=== PATIENT | male | born 1985 | race Caucasian/White ===

== ENCOUNTER 2016-06-11 11:04 | Emergency (ER) | payer OTHER ==
[~2016-06-11] VITALS: Ht 185.4 cm; Wt 81.8 kg
[2016-06-11 11:10] VITALS: BP 141/79; PULSE 117; O2SAT 96
--- NOTE | 2016-06-11 11:21 | ED.REPORT ---
HPI-Abd Pain M Under 40 Date of Service Jun 11, 2016 ED Provider: Aide Hernandez History of Present Illness: new girlfirend and now with burning with urination and white discharge for 2 days. primary care is no one. Nursing Notes Stated Complaint: ABDOMINAL PAIN Chief Complaint: General Complaint Nursing Notes Reviewed: Yes Allergies: Coded Allergies: Sulfa (Sulfonamide Antibiotics) (Verified Allergy, Unknown, hives, itching , 06/11/16) General Time Seen by MD: 11:15 Chief Complaint Dysuria Hx Obtained From: Patient Severity: Current: No pain currently Past Medical History Past Medical History Denies: Asthma Past Surgical History neck surgery 03/21/2015 Smoking History Current Every Day Smoker (1/2 pack a day for 16 years) Social History clean for 3 years 05/2016 Alcohol Use: Denies alcohol use Drug Use: In recovery Occupation live by self no work or school 06/11/2016 Ambulatory Status Independent Review of Systems Basic Review of Systems Eyes: Vision NL, No discharge ENT: Hearing NL, No pain, No nasal congestion, No pharyngeal pain Hematologic: No bleeding, No bruising Endocrine: No cold intolerance, No heat intolerance, No weight gain, No weight loss Skin: No bruising, No rash, No itch Allergy / Immune: No allergy Neurologic: NL mental status, No weakness, No numbness Psychiatric: Normal thought content Physical Exam Initial Vital Signs Vital Signs (First) Date Time Temp Pulse Resp B/P Pulse Ox O2 Delivery O2 Flow Rate FiO2 06/11/16 11:10 36.4 117 141/79 96 Room Air Initial VS: Reviewed, Vital signs normal Head / Eyes: Atraumatic, Normocephalic, PERRL ENT: Mucous membranes moist, Conjunctiva normal, No scleral icterus Neck: Supple, Non-tender, Full range of motion Lymphatic: No lymphadenopathy Extremities: Vascular intact, Neuro intact, No swelling, No tenderness Skin: Warm, Dry, No cyanosis Neurologic: Alert, Oriented, Nonfocal Psychiatric: Mood/affect normal, Behavior normal, Normal thought content General/Constitutional: Awake, Alert, No acute distress, Well appearing, Well developed, Well hydrated Respiratory / Chest: Atraumatic, Breath sounds NL, Breath sounds = bilat, No respiratory distress Cardiovascular: Heart rate NL, Regular rhythm, Heart sounds NL, No gallop Abdomen: Atraumatic, Soft, Non-tender Male Genitourinary: Inspection NL Penis: Positive: Discharge present clear (whiteish) Interpretation & Diagnostics Lab Results Interpretation Test 06/11/16 12:01 Patient Discharge & Departure Primary Impression: Penile discharge Disposition: Home Patient Instructions: Sexually Transmitted Diseases (ED) Additional Instructions: You have been treated for chlamydia and gonococcal infections. Your urine is being tested. If any of them return with a positive finding, we will call you. Please establish in primary care, consider the residency clinic. REturn with any concerns. Referrals: [facility] EDSupervising Provider for APC: Kecia Jeronimo MD copies to: [facility] Aide Hernandez Jun 11, 2016 11:21
[2016-06-11] MEDS ORDERED: cefTRIAXone Inj 250 MG, Lidocaine PF 1% Inj 0.9 ML in Syringe 1 EACH IM ONE (11:25)
== END 2016-06-11 12:20 | disposition home or self-care (01) ==
LOC: SED 11:04
DX: R36.9 Urethral discharge, unspecified (principal); F17.200 Nicotine dependence, unspecified, uncomplicated; Z88.2 Allergy status to sulfonamides
CPT/HCPCS: 87491; 87591; 96372; 99284; J0696